=== PATIENT | female | born 1970 | race Caucasian/White ===

== ENCOUNTER → 2018-01-12 | Outpatient (CLI) | payer BC, OTHER ==
[~2018-01-12] MED LIST: DEXL60CA4 PO; DIPH25CA5 PO; GABA-1220 PO; LAMO150T PO; LAMO200T35 PO; LURA80TA PO; MIRA1TAB3 PO; ROPI1TAB PO
[2018-01-17 02:26] LABS: ANA SCREEN TC 249X NEGATIVE (NEGATIVE); ANTI-SS-A <1.0 NEG AI (<1.0 NEG); ANTI-SS-B <1.0 NEG AI (<1.0 NEG); ANTICARDIOLIPID AB IGA <11 APL (< = 11); COMPLEMENT C3 TC 44859W 150 MG/DL (90-180); COMPLEMENT C4 TC 44982E 34 MG/DL (16-47); MICROSOMAL AB <1 IU/ML (<9)
== END | disposition home or self-care (01) ==
LOC: C.LAB1850 13:49
PROVIDERS: ATTEND Internal Medicine Infectious Disease
DX: B37.0 Candidal stomatitis (principal)